=== PATIENT | female | born 1980 | race Caucasian/White ===

== ENCOUNTER 2022-01-07 15:15 | Observation (INO) | payer BC, OTHER, SELFPAY ==
[2022-01-07] MEDS ORDERED: Morphine 4 MG/ML VIAL ONE (16:10)
[2022-01-07] MEDS ORDERED: Famotidine/PF 20 mg/2ml Vial ONE (16:10)
[2022-01-07] MEDS ORDERED: Ondansetron PF 4 MG/2 ML Vial ONE (16:10)
[2022-01-07 16:35] LABS: ALT (SGPT) 144 U/L (8-55); AST (SGOT) 432 U/L (5-34); Albumin 3.9 g/dL (3.5-5.0); Alkaline Phosphatase 135 U/L (40-110); Anion Gap 19 mmol/L (10-20); BUN (Urea Nitrogen) 14 mg/dL (7.0-18.7); Bilirubin, Total 1.1 mg/dL (0.2-1.2); Calc. Creatinine Clearance 0 mL/min (70-130); Calcium 8.9 mg/dL (7.8-10.44); Carbon Dioxide 23 mmol/L (22-29); Chloride 101 mmol/L (98-107); Globulin 2.8 g/dL (2.4-3.5); Glucose 83 mg/dL (70-105); Lipase 43 U/L (8-78); Potassium 4.9 mmol/L (3.5-5.1); Protein, Total 6.7 g/dL (6.0-8.3); Sodium 138 mmol/L (136-145)
[2022-01-07 16:44] LABS: #Monocytes 0.5 10x3/uL (0.0-1.1); #Neutrophils 5.8 10x3/uL (1.5-8.4); %Basophils 0.5 % (0.0-2.0); %Eosinophils 0.5 % (0.0-6.0); %Lymphocytes 19.7 % (18.0-47.0); %Monocytes 6.7 % (0.0-10.0); %Neutrophils 72.2 % (40.0-75.0); Hemoglobin 13.6 g/dL (12.0-15.5); Mean Corpuscular HGB CONC 34.1 g/dL (32.0-36.0); Mean Corpuscular Hemoglobin 30.2 pg (27.0-33.0); Mean Corpuscular Volume 88.5 fl (81.6-98.3); Mean Platelet Volume 9.9 fl (7.4-10.4); Platelet Count 387 10x3/uL (150-450); RBC Distribution Width 13.2 % (11.5-14.5); Red Blood Cell (RBC) Count 4.51 10x6/uL (3.90-5.03)
[2022-01-07 17:03] LABS: BHCG - Serum Negative (NEGATIVE); Pregs Control Background? CLEAR/WHITE (CLR/WHITE); Pregs Control Bar Appear? YES (CONTROL BAR)
[2022-01-07] MEDS ORDERED: Piperacillin/Tazobactam 4.5 GM VIAL ONE (17:36)
[2022-01-07 18:14] LABS: SARS-CoV-2 NAA Rapid Test Not Detected (NotDetected)
[2022-01-07 19:30] VITALS: BMI 36.6
[2022-01-07] MEDS ORDERED: Ketorolac Tromethamine 30 MG/ML VIAL IVP PRN (20:03)
[2022-01-07 20:13] LABS: Lactic Acid 2.2 mmol/L (0.5-2.2)
[2022-01-07] MEDS ORDERED: Piperacillin/Tazobactam 4.5 GM in Sodium Chloride 0.9% 100 ML IVPB SCH (20:15)
[2022-01-07] MEDS ORDERED: Ondansetron ODT 4 MG TAB SL PRN (20:15)
[2022-01-07] MEDS: Morphine 4 MG/ML VIAL SLOW IVP PRN (20:38)
[2022-01-07] MEDS: Dextrose 5 %-0.45 % NaCl 1,000 ML IV SCH (21:40)
[2022-01-08] MEDS ORDERED: Piperacillin/Tazobactam 3.375 GM in Sodium Chloride 0.9% 100 ML IVPB SCH (02:00)
[2022-01-08] MEDS: Morphine 4 MG/ML VIAL SLOW IVP PRN (05:24)
[2022-01-08] MEDS ORDERED: hydrALAZINE 20 MG/ML VIAL SLOW IVP PRN (07:24)
[2022-01-08] MEDS ORDERED: Calcium Carbonate 500 MG ChewTAB PO PRN (07:24)
[2022-01-08] MEDS ORDERED: Mag-Al 1200 mg/1200 mg/30 ML UDCUP PO PRN (07:24)
[2022-01-08] MEDS ORDERED: Promethazine HCl 25 MG/ML VIAL IM PRN (07:24)
[2022-01-08] MEDS ORDERED: Dextrose 50% Abboject 50 ML SYRINGE SLOW IVP PRN (07:24)
[2022-01-08] MEDS ORDERED: Dextrose 5% in Water 1,000 ML IV PRN (07:24)
[2022-01-08] MEDS ORDERED: D5 1/2 NS w/20 mEq KCL 1,000 ML IV SCH (07:30)
[2022-01-08] MEDS: Dextrose 5 %-0.45 % NaCl 1,000 ML IV SCH ×3 (08:49→20:28)
[2022-01-08] MEDS: Piperacillin/Tazobactam 3.375 GM in Sodium Chloride 0.9% 100 ML IVPB SCH ×2 (09:48→17:47)
[2022-01-08] MEDS: Famotidine/PF 20 mg/2ml Vial SLOW IVP SCH ×2 (09:48→20:27)
[2022-01-08 10:01] LABS: ALT (SGPT) 111 U/L (8-55); AST (SGOT) 128 U/L (5-34); Albumin 3.5 g/dL (3.5-5.0); Alkaline Phosphatase 125 U/L (40-110); Bilirubin, Direct 0.7 mg/dL (0.1-0.3); Bilirubin, Total 1.2 mg/dL (0.2-1.2); Protein, Total 6.2 g/dL (6.0-8.3)
[2022-01-08] MEDS: Ondansetron PF 4 MG/2 ML Vial IVP PRN ×2 (10:38→17:47)
[2022-01-08] MEDS ORDERED: Bupivacaine 0.25% HCL 30 ML VIAL ONE (11:48)
[2022-01-08] MEDS ORDERED: Iopamidol 0 ML FS ONE (11:48)
[2022-01-08] MEDS ORDERED: EPINEPHrine 1 MG/ML AMP ONE (11:48)
[2022-01-08] MEDS ORDERED: Dexamethasone 20 MG/5 ML VIAL ONE (12:12)
[2022-01-08] MEDS ORDERED: Rocuronium Bromide 10 MG/ML (10ML VIAL) ONE (12:12)
[2022-01-08] MEDS ORDERED: Fentanyl 100 MCG/2 ML VIAL ONE ×2 (12:12→14:38)
[2022-01-08] MEDS ORDERED: Midazolam HCl 2 mg/2 ml Vial ONE (12:12)
[2022-01-08] MEDS ORDERED: PROPOFOL 20 ML ONE (12:12)
[2022-01-08] MEDS ORDERED: Ondansetron PF 4 MG/2 ML Vial ONE (12:12)
[2022-01-08] MEDS ORDERED: Lidocaine 1% PF 5 ML VIAL ONE (12:15)
[2022-01-08] MEDS ORDERED: Promethazine HCl 25 MG/ML VIAL ONE (12:57)
[2022-01-08] MEDS ORDERED: HYDROmorphone 0.5 MG/0.5 ML SYRINGE ONE (13:05)
[2022-01-08] MEDS ORDERED: Succinylcholine 200 MG/10 ml SYRINGE FS ONE (13:06)
[2022-01-08] MEDS ORDERED: Glycopyrrolate 0.2 MG/ML 5 ML SYRINGE ONE (14:09)
[2022-01-08] MEDS ORDERED: SUGAMMADEX SODIUM 200 MG/2 ML VIAL ONE (14:19)
[2022-01-08] MEDS: Morphine 2 MG/ML VIAL SLOW IVP PRN (20:45)
[2022-01-09] MEDS: Piperacillin/Tazobactam 3.375 GM in Sodium Chloride 0.9% 100 ML IVPB SCH ×3 (01:36→17:41)
[2022-01-09 04:18] LABS: #Monocytes 0.5 10x3/uL (0.0-1.1); #Neutrophils 8.7 10x3/uL (1.5-8.4); %Basophils 0.2 % (0.0-2.0); %Lymphocytes 10.1 % (18.0-47.0); %Monocytes 5.1 % (0.0-10.0); %Neutrophils 84.4 % (40.0-75.0); Hemoglobin 13.3 g/dL (12.0-15.5); Mean Corpuscular HGB CONC 33.8 g/dL (32.0-36.0); Mean Corpuscular Hemoglobin 29.7 pg (27.0-33.0); Mean Corpuscular Volume 87.7 fl (81.6-98.3); Platelet Count 413 10x3/uL (150-450); RBC Distribution Width 13.9 % (11.5-14.5); Red Blood Cell (RBC) Count 4.48 10x6/uL (3.90-5.03); White Blood Cell (WBC) Count 10.3 10x3/uL (3.5-10.5)
[2022-01-09] MEDS: Dextrose 5 %-0.45 % NaCl 1,000 ML IV SCH ×2 (04:48→14:21)
[2022-01-09] MEDS: Morphine 2 MG/ML VIAL SLOW IVP PRN (04:54)
[2022-01-09] MEDS: Famotidine/PF 20 mg/2ml Vial SLOW IVP SCH (08:15)
[2022-01-09] MEDS ORDERED: Acetaminophen 325 MG TAB PO PRN (08:28)
[2022-01-09] MEDS ORDERED: SUGAMMADEX SODIUM 200 MG/2 ML VIAL ONE (11:59)
[2022-01-09] MEDS ORDERED: Midazolam HCl 2 mg/2 ml Vial ONE (12:01)
[2022-01-09] MEDS ORDERED: Dexamethasone 4 mg/ml Vial ONE (12:01)
[2022-01-09] MEDS ORDERED: Lidocaine 1% PF 5 ML VIAL ONE (12:01)
[2022-01-09] MEDS ORDERED: PROPOFOL 20 ML ONE (12:01)
[2022-01-09] MEDS ORDERED: Ketorolac Tromethamine 15 MG/ML VIAL ONE (12:01)
[2022-01-09] MEDS ORDERED: Ondansetron PF 4 MG/2 ML Vial ONE (12:01)
[2022-01-09] MEDS ORDERED: Fentanyl 100 MCG/2 ML VIAL ONE (12:01)
[2022-01-09] MEDS ORDERED: Rocuronium Bromide 10 MG/ML (10ML VIAL) ONE (12:01)
[2022-01-09] MEDS ORDERED: Indomethacin 50 MG SUPP ONE (12:06)
[2022-01-09] MEDS ORDERED: PHENYLEPHRINE-NS 100 MCG/ML 10 ML SYRINGE ONE (12:31)
[2022-01-09] MEDS ORDERED: Lactated Ringer's 1,000 ML IV SCH (14:13)
[2022-01-09 14:30] VITALS: BP 138/77; TEMP 97.4
== END 2022-01-09 19:01 | disposition home or self-care (01) ==
LOC: CSHERS 15:15 → INTOOBSV 18:37 → CSHTELE 18:37
PROVIDERS: ADMIT Surgery; ATTEND Surgery
PROC: 0FT44ZZ Resection of Gallbladder, Percutaneous Endoscopic Approach (ICD-10-PCS; principal; 2022-01-08)
PROC: BF131ZZ Fluoroscopy of Gallbladder and Bile Ducts using Low Osmolar Contrast (ICD-10-PCS; 2022-01-09)
PROC: 0F798ZZ Dilation of Common Bile Duct, Via Natural or Artificial Opening Endoscopic (ICD-10-PCS; 2022-01-09)
PROC: 0FC98ZZ Extirpation of Matter from Common Bile Duct, Via Natural or Artificial Opening Endoscopic (ICD-10-PCS; 2022-01-09)
DX: K80.64 Calculus of gallbladder and bile duct with chronic cholecystitis without obstruction (principal); R94.5 Abnormal results of liver function studies; F17.210 Nicotine dependence, cigarettes, uncomplicated
CPT/HCPCS: 36415; 47532; 71045; 74330; 76705; 80053; 80076; 83605; 83690; 84484; 84703; 85025; 88304; 93005; 94760; 96365; 96375; 96376; C1713; C1725; G0378; J0171; J1100; J1170; J1610; J1885; J2250; J2270; J2405; J2543; J2550; J2704; J3010; J3480; J3490; J7042; J7120; Q0162; Q9966; S0020; S0028; U0002

== ENCOUNTER 2024-10-22 08:14 | Outpatient (CLI) | payer BC | END 2024-10-22 08:15 | disposition home or self-care (01) | LOC: CSHMAMMO 08:14 | PROVIDERS: ATTEND Student in an Organized Health Care Education/Training Program | DX: Z12.31 Encounter for screening mammogram for malignant neoplasm of breast (principal); Z80.3 Family history of malignant neoplasm of breast | CPT/HCPCS: 77063; 77067 ==

== ENCOUNTER 2024-10-28 03:46 | Emergency (ER) | payer BC | END 2024-10-28 04:30 | disposition home or self-care (01) | LOC: CSHERS 03:46 | DX: K04.7 Periapical abscess without sinus (principal) | CPT/HCPCS: 99283 ==